=== PATIENT | male | born 1995 | race Caucasian/White ===

== ENCOUNTER 2016-11-23 10:15 | Emergency (ER) | payer BC ==
[~2016-11-23] VITALS: Ht 182.9 cm; Wt 74.0 kg
[2016-11-23 10:28] VITALS: TEMP 36.8; Ht 182.9 cm; Wt 74.0 kg
[2016-11-23] MEDS ORDERED: AZIT250T PO (10:46)
[2016-11-23] MEDS ORDERED: IBUP-1050 PO (10:46)
[2016-11-23] MEDS ORDERED: EYED (10:47)
[2016-11-23] MEDS ORDERED: LIDOCAINE/EPINEPH/TETRACAINE 1 EA SYR EXT STA (10:56)
[2016-11-23] MEDS ORDERED: LIDOCAINE/EPINEPH/TETRACAINE 1 EA SYR ONE (10:56)
[2016-11-23] MEDS ORDERED: CEPHALEXIN MONOHYDRATE 250 MG CAP PO STA (10:56)
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
[2016-11-23] MEDS ORDERED: DIPHTHERIA/TETANUS/PERTUSSIS 0.5 ML SYR/VIAL IM. ONE (11:00)
[2016-11-23 12:02] VITALS: BP 124/76; PULSE 76; O2SAT 98
== END 2016-11-23 12:03 | disposition home or self-care (01) ==
LOC: C.EDB 10:17 → C.EDD 12:03
DX: S01.81XA Laceration without foreign body of other part of head, initial encounter (principal); V18.0XXA Pedal cycle driver injured in noncollision transport accident in nontraffic accident, initial encounter; Z23 Encounter for immunization